=== PATIENT | male | born 1955 | race Caucasian/White ===

== ENCOUNTER 2024-05-27 11:07 | Emergency (ER) | payer OTHER, SELFPAY ==
[2024-05-27 11:17] VITALS: BP 221/79
--- NOTE | 2024-05-27 11:33 | ED.GENMED ---
History of Present Illness
General
Chief Complaint: Male Genito-Urinary Symptoms
Source: patient
Exam Limitations: none
Time Seen by Provider: 05/27/24 11:19
Nursing documentation reviewed up to this point in time: agreed with
History of Present Illness
History of Present Illness:
68-year-old male with medical history of GERD, kidney stones presenting to the emergency department today with concerns of abrupt severe left scrotal discomfort. Denies specific urinary symptoms. Claims to have had a varicocele in the past. Has
some radiating discomfort into the abdomen. Denies any chest pain shortness of breath or additional concerns. No preceding trauma.
Past History
Past History
ED Past Medical History: None
ED Past Surgical History: Other (ADENOIDDS)
Social History
Tobacco: Non-smoker
Alcohol: Occasional
Drug: None
Personal:
Living: with family
Review of Systems
Review of Systems
Allergies reviewed?: Yes
All Other Systems: ROS reviewed and negative except as documented in HPI and ROS
Phy Exam
Physical Exam
Physical Exam:
GENERAL: Alert , in no apparent distress
EYE: pupils equal and reactive
NECK: Supple, no significant adenopathy.
ENT: o/p clr, mmm.
CARDIAC: Regular rate and rhythm .
LUNGS: Clear breath sounds bilaterally, no acute respiratory distress, no wheezes/rales/rhonchi
ABDOMEN: Scrotal examination no visible changes no redness or warmth patient does claim to have discomfort when palpating the left sided of the scrotum. Testicle is not fixed abdomen soft, without focal tenderness, no r/g, no cvat
NEUROLOGICAL: Alert and oriented, no focal neuro deficits
SKIN: Warm and dry, skin intact.
MUSCULOSKELETAL: No edema, well perfused.
PSYCH: Normal and appropriate interaction.
Course
Orders/Labs/Results
Orders:
Orders
05/27/24 11:27
Ketorolac [Toradol] 30 mg IV NOW STA
Scrotum US [US Scrotum] Urgent
Comment:
Reason For Exam: L sided scrotal pain abrupt 1 hour ago
05/27/24 11:39
CBC/With Diff [Complete Blood Count/With Diff] Urgent
CMP [Comprehensive Metabolic Panel] Urgent
Urinalysis Reflex To Culture Urgent
Date Specimen was Collected: 05/27/24
Time Specimen was Collected: 11:36
Urine Microscopic Reflex Cult Urgent
05/27/24 12:38
CT Abd/pel Without Iv Or Oral Urgent
Comment:
Reason For Exam: left sided pain, blood in urine hx of stone
Abnormal Lab Results
05/27/24
11:39
Eosinophils % 6.7 H %
(0-6)
Glucose 110 H mg/dl
(70-99)
Ur Occult Blood Reflex 4+ A
(Negative)
Urine RBC >100 A /HPF
(0-2)
05/27/24 11:39
05/27/24 11:39
Vital Signs
Initial and Last Documented VS:
Initial Vital Signs
Temp Pulse Resp BP Pulse Ox
98.2 F 61 18 221/79 100
05/27/24 11:17 05/27/24 11:17 05/27/24 11:17 05/27/24 11:17 05/27/24 11:17
Last Documented Vital Signs
Temp Pulse Resp BP Pulse Ox
98.2 F 58 18 121/72 98
05/27/24 11:17 05/27/24 12:00 05/27/24 12:00 05/27/24 12:00 05/27/24 12:00
MDM/Problems Addressed
MDM/Problems Addressed:
68-year-old male presenting with concerns of left testicular discomfort abruptly while working 1 hour ago. Blood pressure elevated on arrival otherwise vital signs are normal. Pain seems to be reproducible to the left scrotum but no visible
changes testicle does not appear to be in any fixed position no redness or warmth. Ultrasound showing possible varicocele this was explained to the patient. He additionally claims he is having some intermittent flank pain as well. Urine appeared
to have blood significant amount of blood. CT scan was then obtained to evaluate for kidney stone. No evidence of infection with urinalysis. CT scan showed a potential stone in the bladder which could represent a recently passed stone. This is a
very likely scenario this was explained to the patient was advised for urology follow-up but otherwise stable for outpatient management. Asymptomatic For multiple hours here in the ER.
*Critical Care Note
Total Time (30-74mins, 75-104mins- exclusive of procedures): Not Applicable
ED Attending Note
-
Portions of this chart may have been created with voice recognition software.� Occasional wrong word or��sound alike� substitutions may have occurred due to the inherent limitations of voice recognition software.
Discharge Plan
Departure
Patient Disposition: Home (Routine Discharge)
Date of Disposition: 05/27/24
Time of Disposition: 15:04
Patient with high blood pressure during this ER visit?: No
Condition: Good
Covid-19: Not Applicable
Discharge Problem:
Kidney stone, Varicocele
Instructions: Kidney stones in adults, Varicocele
Prescriptions:
No Action
tamsulosin [Flomax] 0.4 mg capsule
0.4 mg PO DAILY Qty: 4 0RF
oxycodone-acetaminophen [Percocet] 5-325 mg tablet
1 tab PO Q8H PRN (Reason: pain) Qty: 10 0RF
Referrals:
Erik Mas MD [Active] - Follow up in 5-7 days
Jovi Mccracken MD [Family Provider] -
Activity Restrictions/Additional Instructions:
You came to the emergency department today with concerns of testicular discomfort and left-sided abdominal pain. This could have been consistent with a kidney stone at the time considering there appears to be a likely recently passed stone that is
currently in your bladder. Otherwise you are also found of a possible varicocele. Please follow-up with urology for ongoing symptoms. Return to the emergency department any worsening, new or concerning symptoms.
Interventions
Interventions:
*Risk Screen - Suicide Last Done: 05/27/24 11:17
*General Assessment Last Done: 05/27/24 11:17
*Neglect/Abuse Screening Last Done: 05/27/24 11:17
ED- Fall Risk Assessment Last Done: 05/27/24 12:08
*ED COVID-19 Vaccine History Last Done: 05/27/24 11:17
ED-Male Genitourinary Assessment Last Done: 05/27/24 12:08
Discharge Date and Time
Print Language: [email or web address]
[2024-05-27] MEDS: TORADOL 30 MG IV (11:35)
[2024-05-27 11:54] LABS: % Basophils 0.9 % (0-2); % Eosinophils 6.7 % (0-6); % Immature Granulocytes 0.2 % (0-0.5); % Lymphocytes 40.3 % (20.5-51.1); % Monocytes 8.8 % (1.7-9.3); % Neutrophils 43.1 % (42.2-75.2); Absolute Basophils 0.1 10^3/uL (0-0.2); Absolute Eosinophils 0.4 10^3/uL (0-0.7); Absolute Lymphocytes 2.7 10^3/uL (1.2-3.4); Absolute Monocytes 0.6 10^3/uL (0.1-0.6); Absolute Neutrophils 2.8 10^3/uL (1.4-6.5); Hematocrit 43.1 % (39.0-52.0); Hemoglobin 15.1 g/dL (13.0-18.0); Mean Corpuscular Hgb 29.4 pg (27.0-31.0); Mean Corpuscular Volume 83.9 fL (80.0-94.0); Mean Platelet Volume 9.2 fL (7.4-10.4); Nucleated Red Blood Cells % 0 % (-); Platelet Count 261 10^3/uL (130-400); Red Blood Cell Count 5.14 10^6/uL (4.70-6.10); Red Cell Dist. Width 12.8 % (11.5-14.5); Urine Albumin Trace (Neg - Trace); Urine Bilirubin Negative (Negative); Urine Character Clear (Clear); Urine Color Yellow; Urine Glucose Negative (Negative); Urine Ketone Negative (Negative); Urine Leukocyte Negative (Negative); Urine Nitrite Negative (Negative); Urine Occult Blood 4+ (Negative); Urine Specific Gravity 1.015 (<1.030); Urine Urobilinogen Negative (Neg - 1+); White Blood Cell Count 6.6 10^3/uL (4.8-10.8)
[2024-05-27 12:00] VITALS: BP 121/72
[2024-05-27 12:01] LABS: Urine Squamous Cell 0-2 /LPF (Few); Urine White Cell 0-2 /HPF (0-5)
[2024-05-27 12:02] LABS: Urine Red Blood Cell >100 /HPF (0-2)
[2024-05-27 12:13] LABS: ALT (SGPT) 28 U/L (0-50); AST (SGOT) 25 U/L (17-59); Albumin 4.9 g/dl (3.5-5.0); Alkaline Phosphatase 82 U/L (38-126); Blood Urea Nitrogen 16 mg/dl (9-20); Calcium 9.6 mg/dl (8.4-10.2); Carbon Dioxide 23 mmol/L (22-30); Chloride 103 mmol/L (98-107); Glucose 110 mg/dl (70-99); Potassium 4.2 mmol/L (3.5-5.1); Sodium 136 mmol/L (135-145); Total Bilirubin 0.8 mg/dl (0.2-1.3); Total Protein 7.7 g/dl (6.3-8.2); eGFR > 60.00
== END 2024-05-27 15:26 | disposition home or self-care (01) ==
LOC: EMR 11:07
PROVIDERS: Physician Assistant; EMERGENCY PHYSICIAN Emergency Medicine; FAMILY PHYSICIAN Internal Medicine
DX: N20.0 Calculus of kidney (principal); I86.1 Scrotal varices; N50.82 Scrotal pain; K21.9 Gastro-esophageal reflux disease without esophagitis; Z87.442 Personal history of urinary calculi; Z85.820 Personal history of malignant melanoma of skin
CPT/HCPCS: 99284; 96374; 74176; 76870; 80053; 81003; 81015; 85025; 93976